=== PATIENT | female | born 2000 | race Caucasian/White ===

== ENCOUNTER 2022-08-14 12:40 | Outpatient (CLI) | payer OTHER | END 2022-08-14 12:48 | disposition home or self-care (01) | LOC: SONOGRAMA 12:40 | DX: Z34.80 Encounter for supervision of other normal pregnancy, unspecified trimester (principal) ==

== ENCOUNTER 2024-03-14 12:08 | Outpatient (CLI) | payer OTHER | END 2024-03-14 14:14 | disposition home or self-care (01) | LOC: PRENATAL 12:08 | PROVIDERS: ATTEND Obstetrics & Gynecology Maternal & Fetal Medicine | DX: O26.849 Uterine size-date discrepancy, unspecified trimester (principal); O36.8199 Decreased fetal movements, unspecified trimester, other fetus; O34.219 Maternal care for unspecified type scar from previous cesarean delivery; Z3A.32 32 weeks gestation of pregnancy ==